=== PATIENT | male | born 1955 | race Caucasian/White ===

== ENCOUNTER 2018-07-03 06:43 | Day surgery (SDC) | payer BC ==
[2018-07-03] VITALS (10 sets, daily range): BP systolic 125–151; BP diastolic 70–90
[~2018-07-03] VITALS: Ht 177.8 cm; Wt 94.8 kg
[~2018-07-03 06:43] MED LIST: GLIP2.5T3 PO; LIDOcaine 1% 30ml preserv. free vial SQ STA; LOSA1TAB36 PO; METF-438 PO; OMEP20TA23 PO; TRAM50TA2 PO
[2018-07-03] MEDS ORDERED: DULA1.5P SQ (07:29)
[2018-07-03] MEDS ORDERED: CITA-278 PO (07:29)
[2018-07-03] MEDS ORDERED: HYDR-4353 PO (07:29)
[2018-07-03] MEDS ORDERED: albumin (human) 25% 100ml IV 100 ML IV ONE (10:15)
== END 2018-07-03 11:05 | disposition home or self-care (01) ==
LOC: SSTAY O 06:43
PROVIDERS: ATTEND Radiology Diagnostic Radiology
DX: J90 Pleural effusion, not elsewhere classified (principal); K70.31 Alcoholic cirrhosis of liver with ascites; I10 Essential (primary) hypertension; E11.9 Type 2 diabetes mellitus without complications; K21.9 Gastro-esophageal reflux disease without esophagitis; F17.210 Nicotine dependence, cigarettes, uncomplicated; F10.10 Alcohol abuse, uncomplicated; Z23 Encounter for immunization; Z89.021 Acquired absence of right finger(s); Z79.891 Long term (current) use of opiate analgesic; Z79.84 Long term (current) use of oral hypoglycemic drugs; Z98.890 Other specified postprocedural states; Z79.899 Other long term (current) drug therapy; Z82.49 Family history of ischemic heart disease and other diseases of the circulatory system; Z83.6 Family history of other diseases of the respiratory system
CPT/HCPCS: 32555; 49083; 71045; J3490; P9047; Q2037

== ENCOUNTER 2018-08-11 08:56 | Day surgery (SDC) | payer BC ==
[~2018-08-11] VITALS: Ht 177.8 cm; Wt 84.7 kg
[2018-08-11] VITALS (12 sets, daily range): BP systolic 119–143; BP diastolic 62–82
[~2018-08-11 08:56] MED LIST changes: +CITA-278 PO; +DULA1.5P SQ; -GLIP2.5T3 PO; +HYDR-4353 PO; -TRAM50TA2 PO
== END 2018-08-11 11:33 | disposition home or self-care (01) ==
LOC: SSTAY O 08:56
PROVIDERS: ATTEND Radiology Vascular & Interventional Radiology
DX: J90 Pleural effusion, not elsewhere classified (principal); K70.31 Alcoholic cirrhosis of liver with ascites; F10.10 Alcohol abuse, uncomplicated; E11.9 Type 2 diabetes mellitus without complications; I10 Essential (primary) hypertension; K21.9 Gastro-esophageal reflux disease without esophagitis; Z90.49 Acquired absence of other specified parts of digestive tract; Z86.2 Personal history of diseases of the blood and blood-forming organs and certain disorders involving the immune mechanism; Z89.021 Acquired absence of right finger(s); Z79.891 Long term (current) use of opiate analgesic; Z79.84 Long term (current) use of oral hypoglycemic drugs; Z87.891 Personal history of nicotine dependence; Z98.890 Other specified postprocedural states; Z79.899 Other long term (current) drug therapy; Z82.49 Family history of ischemic heart disease and other diseases of the circulatory system; Z83.6 Family history of other diseases of the respiratory system
CPT/HCPCS: 32555; 49083; 71045; J3490

== ENCOUNTER 2018-12-17 06:29 | Day surgery (SDC) | payer BC ==
[2018-12-17] VITALS (8 sets, daily range): BP systolic 110–130; BP diastolic 62–80
[~2018-12-17] VITALS: Ht 177.8 cm; Wt 87.6 kg
[~2018-12-17 06:29] MED LIST changes: -CITA-278 PO; +CITA20TA28 PO; -LIDOcaine 1% 30ml preserv. free vial SQ STA
[2018-12-17] MEDS ORDERED: normal saline 1000ml 1,000 ML IV PRN (07:00)
[2018-12-17] MEDS ORDERED: albumin 25% 100mL bottle x 1 IV PRN (07:00)
== END 2018-12-17 10:00 | disposition home or self-care (01) ==
LOC: SSTAY O 06:29
PROVIDERS: ATTEND Radiology Vascular & Interventional Radiology
DX: R18.8 Other ascites (principal); K74.60 Unspecified cirrhosis of liver; J90 Pleural effusion, not elsewhere classified; Z87.891 Personal history of nicotine dependence
CPT/HCPCS: 32555; 49083; 71045; C1729; J7030

== ENCOUNTER 2018-12-24 06:50 | Day surgery (SDC) | payer BC ==
[~2018-12-24] VITALS: Ht 177.8 cm; Wt 87.7 kg
[2018-12-24] VITALS (8 sets, daily range): BP systolic 96–165; BP diastolic 50–83
[~2018-12-24 06:50] MED LIST changes: -HYDR-4353 PO
== END 2018-12-24 10:20 | disposition home or self-care (01) ==
LOC: SSTAY O 06:50
PROVIDERS: ATTEND Radiology Vascular & Interventional Radiology
DX: J90 Pleural effusion, not elsewhere classified (principal); K74.60 Unspecified cirrhosis of liver; E11.9 Type 2 diabetes mellitus without complications; Z87.891 Personal history of nicotine dependence
CPT/HCPCS: 32555; 49083; 71045; 82948

== ENCOUNTER 2019-01-02 06:42 | Day surgery (SDC) | payer BC ==
[~2019-01-02] VITALS: Ht 177.8 cm; Wt 85.7 kg
[2019-01-02] VITALS (14 sets, daily range): BP systolic 113–132; BP diastolic 66–83
== END 2019-01-02 09:45 | disposition home or self-care (01) ==
LOC: SSTAY O 06:42
PROVIDERS: ATTEND Radiology Diagnostic Radiology
DX: K70.31 Alcoholic cirrhosis of liver with ascites (principal); J90 Pleural effusion, not elsewhere classified; E11.9 Type 2 diabetes mellitus without complications; I10 Essential (primary) hypertension; K21.9 Gastro-esophageal reflux disease without esophagitis; Z87.891 Personal history of nicotine dependence; Z79.899 Other long term (current) drug therapy; Z82.49 Family history of ischemic heart disease and other diseases of the circulatory system; Z89.021 Acquired absence of right finger(s)
CPT/HCPCS: 32555; 49083; 71045; C1729; J2001

== ENCOUNTER 2019-01-26 09:21 | Day surgery (SDC) | payer BC ==
[~2019-01-26] VITALS: Ht 177.8 cm; Wt 88.7 kg
[2019-01-26] VITALS (10 sets, daily range): BP systolic 119–135; BP diastolic 73–82
[2019-01-26] MEDS ORDERED: albumin 25% 100mL bottle x 1 IV PRN (09:35)
[2019-01-26] MEDS ORDERED: normal saline 1000ml 1,000 ML IV PRN (09:35)
== END 2019-01-26 12:15 | disposition home or self-care (01) ==
LOC: SSTAY O 09:21
PROVIDERS: ATTEND Radiology Vascular & Interventional Radiology
DX: K70.31 Alcoholic cirrhosis of liver with ascites (principal); J90 Pleural effusion, not elsewhere classified; E11.9 Type 2 diabetes mellitus without complications; I10 Essential (primary) hypertension; K21.9 Gastro-esophageal reflux disease without esophagitis; Z87.891 Personal history of nicotine dependence; Z79.899 Other long term (current) drug therapy; Z82.49 Family history of ischemic heart disease and other diseases of the circulatory system; Z89.111 Acquired absence of right hand
CPT/HCPCS: 32555; 49083; 71045; C1729; J7030; P9047

== ENCOUNTER 2019-03-06 10:30 | Emergency (ER) | payer BC ==
[~2019-03-06] VITALS: Ht 177.8 cm; Wt 81.2 kg
[2019-03-06 11:42] LABS: BASOPHILS % (AUTO) 0.5 % (0-1); EOSINOPHILS # (AUTO) 0.1 X10'3 (0-0.9); EOSINOPHILS % (AUTO) 2.1 % (0-6); HEMOGLOBIN 12.1 g/dl (14.0-17.9); LYMPHOCYTES # (AUTO) 0.6 X10'3 (1.1-4.8); LYMPHOCYTES % (AUTO) 14.9 % (21-51); MEAN CORPUSCULAR HEMOGLOBIN 23.9 PG (27.0-31.0); MEAN PLATELET VOLUME 7.9 FL (7.4-10.4); MONOCYTES # (AUTO) 0.4 X10'3 (0-0.9); MONOCYTES % (AUTO) 10.8 % (2-12); NEUTROPHILS # (AUTO) 2.9 X10'3 (1.8-7.7); NEUTROPHILS % (AUTO) 71.7 % (42-75); PLATELET COUNT 70 X10'3 (140-440); RED BLOOD COUNT 5.07 X10'6 (4.70-6.10); WHITE BLOOD COUNT 4.1 X10'3 (4.5-11.0)
[2019-03-06 11:56] LABS: PARTIAL THROMBOPLASTIN TIME 30 SECONDS (22-32)
[2019-03-06 11:58] LABS: HYPOCHROMASIA 1+; PLATELET ESTIMATE DECREASED; POLYCHROMASIA 1+
[2019-03-06 11:59] LABS: ANISOCYTOSIS 3+; MICROCYTOSIS 1+; POIKILOCYTOSIS 1+
[2019-03-06 12:08] LABS: ALANINE AMINOTRANSFERASE 32 U/L (12-78); ALBUMIN 3.1 G/DL (3.4-5.0); ALBUMIN/GLOBULIN RATIO 0.7 (1.1-1.5); ALKALINE PHOSPHATASE 173 IU/L (46-116); ANION GAP 6 (8-16); ASPARTATE AMINO TRANSFERASE 43 U/L (10-37); BILIRUBIN,TOTAL 1.8 MG/DL (0.1-1.0); BLOOD UREA NITROGEN 11 MG/DL (7-18); BUN/CREATININE RATIO 19.3 (5.4-32.0); CALCIUM 8.3 MG/DL (8.5-10.1); CHLORIDE 106 MMOL/L (99-107); CREATININE 0.57 MG/DL (0.60-1.10); GLUCOSE 147 MG/DL (70-104); POTASSIUM 3.9 MMOL/L (3.5-5.1); SODIUM 140 MMOL/L (135-145); TOTAL CARBON DIOXIDE 27.8 MMOL/L (24-32); TOTAL PROTEIN 7.6 G/DL (6.4-8.2); eGFR > 90 ML/MIN
--- NOTE | 2019-03-06 14:49 | NUR ---
Thoracentesis currently being performed by MD Thakur
[2019-03-06 15:53] VITALS: BP 136/75
== END 2019-03-06 15:55 | disposition home or self-care (01) ==
LOC: ER 10:30
DX: J90 Pleural effusion, not elsewhere classified (principal); K70.31 Alcoholic cirrhosis of liver with ascites; F17.200 Nicotine dependence, unspecified, uncomplicated; Z79.899 Other long term (current) drug therapy
CPT/HCPCS: 32554; 36415; 71045; 71046; 80053; 85025; 85610; 85730; 99285

== ENCOUNTER 2019-10-01 07:04 | Day surgery (SDC) | payer MEDICAID ==
[2019-10-01] VITALS (11 sets, daily range): BP systolic 102–121; BP diastolic 51–75
[~2019-10-01] VITALS: Ht 177.8 cm; Wt 89.3 kg
[2019-10-01] MEDS ORDERED: normal saline 1000ml 1,000 ML IV PRN (07:25)
[2019-10-01] MEDS: albumin 25% 100mL bottle x 1 IV PRN ×2 (09:22→10:08)
[2019-10-01] MEDS ORDERED: FLU VACC QS2019-20 36MOS UP/PF 60 MCG/0.5 ML SYRINGE IMVAC ONE (10:00)
== END 2019-10-01 11:25 | disposition home or self-care (01) ==
LOC: SSTAY O 07:04
PROVIDERS: ATTEND Radiology Diagnostic Radiology
DX: K70.31 Alcoholic cirrhosis of liver with ascites (principal); J90 Pleural effusion, not elsewhere classified; E11.9 Type 2 diabetes mellitus without complications; I10 Essential (primary) hypertension; K21.9 Gastro-esophageal reflux disease without esophagitis; Z87.891 Personal history of nicotine dependence; Z89.111 Acquired absence of right hand; Z79.899 Other long term (current) drug therapy; Z82.49 Family history of ischemic heart disease and other diseases of the circulatory system; Z82.5 Family history of asthma and other chronic lower respiratory diseases; Z98.890 Other specified postprocedural states
CPT/HCPCS: 32555; 49083; 71045; C1729; P9047; Q2037

== ENCOUNTER 2019-10-22 07:21 | Day surgery (SDC) | payer MEDICAID ==
[2019-10-22] VITALS (10 sets, daily range): BP systolic 126–158; BP diastolic 62–77
[~2019-10-22] VITALS: Ht 177.8 cm; Wt 93.2 kg
[2019-10-22] MEDS ORDERED: normal saline 1000ml 1,000 ML IV PRN (07:40)
[2019-10-22] MEDS: albumin 25% 100mL bottle x 1 IV PRN ×2 (10:29→11:01)
== END 2019-10-22 11:40 | disposition home or self-care (01) ==
LOC: SSTAY O 07:21 → MED 3N 07:23 → SSTAY O 11:40
PROVIDERS: ATTEND Radiology Diagnostic Radiology
DX: J90 Pleural effusion, not elsewhere classified (principal); K70.31 Alcoholic cirrhosis of liver with ascites; E11.9 Type 2 diabetes mellitus without complications; I10 Essential (primary) hypertension; K21.9 Gastro-esophageal reflux disease without esophagitis; Z72.89 Other problems related to lifestyle; Z87.891 Personal history of nicotine dependence; Z79.84 Long term (current) use of oral hypoglycemic drugs; Z79.899 Other long term (current) drug therapy; Z89.421 Acquired absence of other right toe(s); Z82.49 Family history of ischemic heart disease and other diseases of the circulatory system
CPT/HCPCS: 32555; 49083; 71045; C1729; P9047; GO378

== ENCOUNTER 2019-11-06 07:02 | Day surgery (SDC) | payer MEDICAID ==
[~2019-11-06] VITALS: Ht 177.8 cm; Wt 93.5 kg
[2019-11-06] VITALS (12 sets, daily range): BP systolic 98–161; BP diastolic 58–121
[2019-11-06] MEDS ORDERED: normal saline 1000ml 1,000 ML IV SCH (07:15)
[2019-11-06] MEDS ORDERED: normal saline 1000ml 1,000 ML IV PRN (08:55)
[2019-11-06] MEDS: albumin 25% 100mL bottle x 1 IV PRN ×2 (09:05→10:02)
== END 2019-11-06 11:20 | disposition home or self-care (01) ==
LOC: U 07:02 → MED 3N 07:02 → U 11:20
PROVIDERS: ATTEND Radiology Vascular & Interventional Radiology
DX: K70.31 Alcoholic cirrhosis of liver with ascites (principal); J90 Pleural effusion, not elsewhere classified; E11.9 Type 2 diabetes mellitus without complications; I10 Essential (primary) hypertension; K21.9 Gastro-esophageal reflux disease without esophagitis; Z87.891 Personal history of nicotine dependence; Z72.89 Other problems related to lifestyle; Z79.899 Other long term (current) drug therapy; Z89.021 Acquired absence of right finger(s); Z82.49 Family history of ischemic heart disease and other diseases of the circulatory system
CPT/HCPCS: 32555; 49083; 71045; C1729; P9047

== ENCOUNTER 2019-11-19 06:48 | Day surgery (SDC) | payer MEDICAID ==
[2019-11-19] VITALS (12 sets, daily range): BP systolic 103–127; BP diastolic 56–76
[~2019-11-19] VITALS: Ht 177.8 cm; Wt 88.5 kg
[~2019-11-19 06:48] MED LIST changes: -CITA20TA28 PO
[2019-11-19] MEDS ORDERED: normal saline 1000ml 1,000 ML IV PRN (10:00)
[2019-11-19] MEDS: albumin 25% 100mL bottle x 1 IV PRN ×2 (10:04→10:43)
== END 2019-11-19 11:35 | disposition home or self-care (01) ==
LOC: SSTAY O 06:48 → MED 3N 06:52 → SSTAY O 11:35
PROVIDERS: ATTEND Radiology Vascular & Interventional Radiology
DX: J90 Pleural effusion, not elsewhere classified (principal); R18.8 Other ascites; Z72.89 Other problems related to lifestyle; E11.9 Type 2 diabetes mellitus without complications; I10 Essential (primary) hypertension; K21.9 Gastro-esophageal reflux disease without esophagitis; Z87.891 Personal history of nicotine dependence; Z79.84 Long term (current) use of oral hypoglycemic drugs; Z79.899 Other long term (current) drug therapy; Z89.021 Acquired absence of right finger(s); Z82.49 Family history of ischemic heart disease and other diseases of the circulatory system; Z83.6 Family history of other diseases of the respiratory system
CPT/HCPCS: 32555; 49083; 71045; C1729; P9047

== ENCOUNTER 2019-12-03 08:01 | Day surgery (SDC) | payer MEDICAID ==
[~2019-12-03] VITALS: Ht 177.8 cm; Wt 88.6 kg
[2019-12-03] VITALS (13 sets, daily range): BP systolic 97–119; BP diastolic 52–78
[2019-12-03] MEDS ORDERED: normal saline 1000ml 1,000 ML IV PRN (08:15)
[2019-12-03] MEDS: albumin 25% 100mL bottle x 1 IV PRN ×2 (10:30→10:52)
== END 2019-12-03 12:25 | disposition home or self-care (01) ==
LOC: SSTAY O 08:01
PROVIDERS: ATTEND Radiology Diagnostic Radiology
DX: K70.31 Alcoholic cirrhosis of liver with ascites (principal); J90 Pleural effusion, not elsewhere classified; E11.9 Type 2 diabetes mellitus without complications; I10 Essential (primary) hypertension; K21.9 Gastro-esophageal reflux disease without esophagitis; Z87.891 Personal history of nicotine dependence; Z72.89 Other problems related to lifestyle; Z89.021 Acquired absence of right finger(s); Z79.899 Other long term (current) drug therapy; Z82.49 Family history of ischemic heart disease and other diseases of the circulatory system; Z83.6 Family history of other diseases of the respiratory system
CPT/HCPCS: 32555; 49083; 71045; C1729; P9047

== ENCOUNTER 2019-12-17 07:54 | Day surgery (SDC) | payer MEDICAID ==
[2019-12-17] VITALS (11 sets, daily range): BP systolic 95–129; BP diastolic 54–72
[~2019-12-17] VITALS: Ht 180.3 cm; Wt 88.5 kg
[2019-12-17] MEDS ORDERED: normal saline 1000ml 1,000 ML IV PRN (08:10)
[2019-12-17] MEDS: albumin 25% 100mL bottle x 1 IV PRN ×2 (10:03→10:32)
== END 2019-12-17 12:10 | disposition home or self-care (01) ==
LOC: SSTAY O 07:54
PROVIDERS: ATTEND Radiology Vascular & Interventional Radiology
DX: J90 Pleural effusion, not elsewhere classified (principal); R18.8 Other ascites; E11.22 Type 2 diabetes mellitus with diabetic chronic kidney disease; I10 Essential (primary) hypertension; K21.9 Gastro-esophageal reflux disease without esophagitis; Z87.891 Personal history of nicotine dependence; Z72.89 Other problems related to lifestyle; Z89.421 Acquired absence of other right toe(s); Z79.899 Other long term (current) drug therapy; Z79.84 Long term (current) use of oral hypoglycemic drugs; Z82.49 Family history of ischemic heart disease and other diseases of the circulatory system; Z83.6 Family history of other diseases of the respiratory system
CPT/HCPCS: 32555; 49083; 71045; P9047

== ENCOUNTER 2020-01-11 05:56 | Day surgery (SDC) | payer MEDICAID ==
[~2020-01-11] VITALS: Ht 177.8 cm; Wt 96.7 kg
[2020-01-11] VITALS (14 sets, daily range): BP systolic 105–159; BP diastolic 57–95
[2020-01-11] MEDS ORDERED: normal saline 1000ml 1,000 ML IV PRN (06:20)
[2020-01-11] MEDS: albumin 25% 100mL bottle x 1 IV PRN ×3 (09:12→10:34)
== END 2020-01-11 11:20 | disposition home or self-care (01) ==
LOC: SSTAY O 05:56
PROVIDERS: ATTEND Radiology Diagnostic Radiology
DX: K70.31 Alcoholic cirrhosis of liver with ascites (principal); J90 Pleural effusion, not elsewhere classified; E11.9 Type 2 diabetes mellitus without complications; I10 Essential (primary) hypertension; K21.9 Gastro-esophageal reflux disease without esophagitis; Z87.891 Personal history of nicotine dependence; Z72.89 Other problems related to lifestyle; Z89.021 Acquired absence of right finger(s); Z79.899 Other long term (current) drug therapy; Z79.84 Long term (current) use of oral hypoglycemic drugs; Z82.49 Family history of ischemic heart disease and other diseases of the circulatory system; Z83.6 Family history of other diseases of the respiratory system
CPT/HCPCS: 32555; 49083; 71045; P9047

== ENCOUNTER 2020-01-29 06:03 | Day surgery (SDC) | payer MEDICAID ==
[~2020-01-29] VITALS: Ht 177.8 cm; Wt 93.8 kg
[2020-01-29] VITALS (13 sets, daily range): BP systolic 98–141; BP diastolic 52–90
[2020-01-29] MEDS ORDERED: normal saline 1000ml 1,000 ML IV PRN (06:20)
[2020-01-29] MEDS: albumin 25% 100mL bottle x 1 IV PRN ×3 (09:00→10:02)
== END 2020-01-29 11:40 | disposition home or self-care (01) ==
LOC: SSTAY O 06:03
PROVIDERS: ATTEND Radiology Diagnostic Radiology
DX: J90 Pleural effusion, not elsewhere classified (principal); K70.31 Alcoholic cirrhosis of liver with ascites; E11.9 Type 2 diabetes mellitus without complications; I10 Essential (primary) hypertension; K21.9 Gastro-esophageal reflux disease without esophagitis; Z87.891 Personal history of nicotine dependence; Z79.899 Other long term (current) drug therapy; Z82.49 Family history of ischemic heart disease and other diseases of the circulatory system; Z83.6 Family history of other diseases of the respiratory system; Z11.59 Encounter for screening for other viral diseases; Z72.89 Other problems related to lifestyle; Z89.021 Acquired absence of right finger(s)
CPT/HCPCS: 32555; 36415; 49083; 71045; P9047; U0003

== ENCOUNTER 2020-02-15 07:27 | Day surgery (SDC) | payer MEDICAID ==
[2020-02-15] VITALS (10 sets, daily range): BP systolic 105–132; BP diastolic 56–88
[~2020-02-15] VITALS: Ht 177.8 cm; Wt 88.9 kg
[2020-02-15] MEDS ORDERED: normal saline 1000ml 1,000 ML IV PRN (07:45)
[2020-02-15] MEDS: albumin 25% 100mL bottle x 1 IV PRN ×2 (09:01→09:41)
== END 2020-02-15 10:55 | disposition home or self-care (01) ==
LOC: SSTAY O 07:27
PROVIDERS: ATTEND Radiology Vascular & Interventional Radiology
DX: R18.8 Other ascites (principal); J90 Pleural effusion, not elsewhere classified; E11.9 Type 2 diabetes mellitus without complications; I10 Essential (primary) hypertension; K21.9 Gastro-esophageal reflux disease without esophagitis; Z87.891 Personal history of nicotine dependence; Z72.89 Other problems related to lifestyle; Z89.021 Acquired absence of right finger(s); Z79.84 Long term (current) use of oral hypoglycemic drugs; Z79.899 Other long term (current) drug therapy; Z82.49 Family history of ischemic heart disease and other diseases of the circulatory system; Z83.6 Family history of other diseases of the respiratory system
CPT/HCPCS: 32555; 49083; 71045; P9047